=== PATIENT | female | born 1965 | race Caucasian/White ===

== ENCOUNTER 2018-10-05 06:34 | Emergency (ER) | payer OTHER ==
[2018-10-05] MEDS ORDERED: OXYCODONE-ACETAMINOPHEN 5-325 MG TABLET PO ONE (07:45)
[2018-10-05] MEDS ORDERED: METHOCARBAMOL 750 MG TABLET PO ONE (07:45)
--- NOTE | 2018-10-05 08:38 | ER Document Report ---
ED Medical Screen (RME) - General Chief Complaint: Leg Pain Stated Complaint: PAIN/LOSS OF MOBILITY IN LEG Time Seen by Provider: 10/05/18 08:34 Notes: Patient is a 53-year-old female with a history of [place] and hypertension who reports to the emergency department with chief complaint of left lower back pain. Patient states she has had a L4 S1 disc fusion and deals with chronic back pain. She states that yesterday she felt the left lower back ache that radiated down into her leg. Patient states that this morning she got up getting ready for work when she bent down to grab something out of the dryer and developed a sharp pain that radiated down her left leg. Denies any new numbness or tingling to the lower extremities. Patient denies loss of bowel or bladder. TRAVEL OUTSIDE OF THE [place] IN LAST 30 DAYS: No - Related Data Allergies/Adverse Reactions: No Known Drug Allergies Allergy (Verified 10/05/18 06:58) Past Medical History Renal/ Medical History: Denies: Hx Peritoneal Dialysis Physical Exam - Vital signs Vitals: Temp Pulse Resp BP Pulse Ox 97.5 F 72 20 153/75 H 99 10/05/18 06:40 10/05/18 06:40 10/05/18 06:40 10/05/18 06:40 10/05/18 06:40 Interpretation: Hypertensive - Notes Notes: GENERAL: Well-appearing, well-nourished and in no acute distress. HEAD: Atraumatic, normocephalic. EYES: Pupils equal round and reactive to light, extraocular movements intact, sclera anicteric, conjunctiva are normal. ENT: Nares patent, oropharynx clear without exudates. Moist mucous membranes. NECK: Normal range of motion, supple without lymphadenopathy or JVD. LUNGS: Breath sounds clear to auscultation bilaterally and equal. No wheezes rales or rhonchi. HEART: Regular rate and rhythm without murmurs, rubs or gallops. ABDOMEN: Soft, nontender, normoactive bowel sounds. No guarding, no rebound. No masses appreciated. BACK: No cervical, thoracic, lumbar midline tenderness. No saddle anesthesia, normal distal neurovascular exam. Left paraspinal tenderness. No bruising or swelling. GENITOURINARY: Deferred. EXTREMITIES: Normal range of motion, no pitting or edema. No clubbing or cyanosis. NEUROLOGICAL: Cranial nerves II through XII grossly intact. Normal speech. PSYCH: Normal mood, normal affect. SKIN: Warm, Dry, normal turgor, no rashes or lesions noted. Course - Re-evaluation Re-evalutation: 10/05/18 08:37 I have greeted and performed a rapid initial assessment of this patient. A comprehensive ED assessment and evaluation of the patient, analysis of test results and completion of the medical decision making process will be conducted by additional ED providers. - Vital Signs Vital signs: Temp Pulse Resp BP Pulse Ox 97.5 F 72 20 153/75 H 99 10/05/18 06:40 10/05/18 06:40 10/05/18 06:40 10/05/18 06:40 10/05/18 06:40
--- NOTE | 2018-10-05 08:42 | RADIOLOGY REPORT (SQ) ---
EXAM DESCRIPTION: L SPINE 2 VIEWS COMPLETED DATE/TIME: 10/05/2018 7:56 am REASON FOR STUDY: left lower back pain, hx. lumbar surgery COMPARISON: None. NUMBER OF VIEWS: Two views. TECHNIQUE: AP and lateral radiographic images acquired of the lumbar spine. LIMITATIONS: None. FINDINGS: Bones are osteopenic. 5 lumbar vertebral bodies are present, the most inferior well-developed disc space is labeled L5-S1. There is grade 1 anterolisthesis of L5 over S1. It is difficult to discern from frontal and lateral films whether this is due to bilateral L5 spondylolysis or advanced facet arthropathy. Disc space lo ss of height at L5-S1 is also present, with vertebral body endplate sclerosis and mild osteophyte for mation. Patient is post anterior discectomy and fusion at L4-5 and L3-4, with disc spacers and anterior fixat ion hardware. Old transpedicular screw tracts are identified on the right at L4 and L5. Pelvis is the is not included in the field of view. However the SI joints are within the field of vi ew and are normal. Calcified pelvic phleboliths, IUD in the uterus, surgical clips over the sacral promontory. IMPRESSION: Post anterior discectomy and fusion at L3-4 and L4-5 Grade 1 anterolisthesis of L5 over S1 with sclerotic posterior elements, question spondylolysis versu s advanced facet arthropathy TECHNICAL DOCUMENTATION: JOB ID: [id number] [employer]- All Rights Reserved Reading location - IP/workstation name: [email or web address]
[2018-10-05] MEDS ORDERED: DIPHENHYDRAMINE HCL 25 MG CAPSULE PO ONE (09:16)
--- NOTE | 2018-10-05 10:06 | ER Document Report ---
HPI - HPI Time Seen by Provider: 10/05/18 08:34 Pain Level: 5 Notes: Patient is a 53-year-old female with history of chronic back pain presenting to the emergency department with left-sided lumbar back pain and radiation down the left leg. 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 Patient denies any loss of control of bowel or bladder and denies any urinary retention and denies any saddle anesthesia. - REPRODUCTIVE Reproductive: DENIES: : Past Medical History - General Information source: Patient - Social History Smoking Status: Never Smoker Frequency of alcohol use: None Drug Abuse: None Family History: Reviewed & Not Pertinent Patient has suicidal ideation: No Patient has homicidal ideation: No Renal/ Medical History: Denies: Hx Peritoneal Dialysis Musculoskeletal Medical History: Reports Other - Chronic back pain Vertical Provider Document - CONSTITUTIONAL Notes: PHYSICAL EXAMINATION: GENERAL: Well-appearing, well-nourished and in no acute distress. HEAD: Atraumatic, normocephalic. EYES: Pupils equal round extraocular movements intact, conjunctiva are normal. ENT: Nares patent NECK: Normal range of motion LUNGS: No respiratory distress Musculoskeletal: Normal range of motion, tenderness to palpation to left-sided lumbar paraspinous muscles, no vertebral tenderness, step-off or deformity. NEUROLOGICAL: Normal speech, normal gait. PSYCH: Normal mood, normal affect. SKIN: Warm, Dry, normal turgor, no rashes or lesions noted. - INFECTION CONTROL TRAVEL OUTSIDE OF THE [place] IN LAST 30 DAYS: No Course - Re-evaluation Re-evalutation: X-ray was ordered by provider in triage, there are no acute findings only chronic changes on the lumbar spine x-ray. Patient showed significant improvement after administration of muscle relaxers and Percocet here in the emergency department as ordered by triage provider. Patient will be discharged home in stable condition with prescription for muscle relaxers. ED return precautions were discussed, red flag warning signs were also discussed and patient verbalized understanding and agreement with same. - Vital Signs Vital signs: Temp Pulse Resp BP Pulse Ox 97.5 F 72 20 153/75 H 99 10/05/18 06:40 10/05/18 06:40 10/05/18 06:40 10/05/18 06:40 10/05/18 06:40 Discharge - Discharge Clinical Impression: Musculoskeletal strain Condition: Stable Disposition: HOME, SELF-CARE Instructions: Family Physicians / Practices Additional Instructions: Muscle Strain You have strained a muscle -- torn the fibers within the muscle. This often occurs with strenuous exertion, or during an injury that suddenly stretches the muscle. The seriousness of a strain varies. Some strains heal within days, others cause problems for months. X-rays cannot show a muscle strain. X-rays are taken only if symptoms suggest that a fracture could be present. The usual treatment of a muscle strain is rest and ice packs. Sometimes, a sling, splint, or crutches may be necessary to rest the muscle. The muscle can be used again once pain subsides. Severe strains require a special exercise and stretching program to prevent permanent stiffness and disability. Your doctor will advise you if this will be necessary. Call the doctor immediately if pain or swelling becomes severe, or if numbness or discoloration develop. Please take medications as prescribed. Please take ibuprofen 600 mg every 6 hours for the next several days. Apply moist heat to the area as this may also help with the pain and discomfort. Please consider establishing care with a primary care physician at your earliest convenience, a list has been provided for you. Prescriptions: Methocarbamol [Robaxin 750 mg Tablet] 750 mg PO Q4 #24 tablet Prednisone 10 mg PO ASDIR PRN #21 tab.ds.pk PRN Reason: Forms: Return to Work
[2018-10-05 10:40] VITALS: BP 141/77
== END 2018-10-05 10:15 | disposition home or self-care (01) ==
LOC: ER 06:34
DX: T14.8XXA Other injury of unspecified body region, initial encounter (principal); M54.5 Low back pain; X58.XXXA Exposure to other specified factors, initial encounter
CPT/HCPCS: 99283; 72100; J3490